=== PATIENT | female | born 1985 | race Two or more races ===

== ENCOUNTER 2023-12-30 13:18 | Outpatient (CLI) | payer OTHER | END 2023-12-30 13:19 | disposition home or self-care (01) | LOC: PRENATAL 13:18 | PROVIDERS: ATTEND Obstetrics & Gynecology Maternal & Fetal Medicine | DX: O35.9XX0 Maternal care for (suspected) fetal abnormality and damage, unspecified, not applicable or unspecified (principal); O35.3XX0 Maternal care for (suspected) damage to fetus from viral disease in mother, not applicable or unspecified; O44.02 Complete placenta previa NOS or without hemorrhage, second trimester; O09.512 Supervision of elderly primigravida, second trimester; O34.219 Maternal care for unspecified type scar from previous cesarean delivery; O36.0920 Maternal care for other rhesus isoimmunization, second trimester, not applicable or unspecified; Z3A.20 20 weeks gestation of pregnancy ==

== ENCOUNTER 2024-03-23 11:25 | Outpatient (CLI) | payer OTHER | END 2024-03-23 11:26 | disposition home or self-care (01) | LOC: PRENATAL 11:25 | PROVIDERS: ATTEND Obstetrics & Gynecology Maternal & Fetal Medicine | DX: O26.849 Uterine size-date discrepancy, unspecified trimester (principal); O36.8199 Decreased fetal movements, unspecified trimester, other fetus; O09.519 Supervision of elderly primigravida, unspecified trimester; O34.219 Maternal care for unspecified type scar from previous cesarean delivery; O36.1999 Maternal care for other isoimmunization, unspecified trimester, other fetus; Z3A.32 32 weeks gestation of pregnancy ==

== ENCOUNTER 2024-04-29 09:15 | Inpatient (IN) | payer OTHER ==
[~2024-04-29] VITALS: Ht 152.4 cm; Wt 90.7 kg
[2024-04-29 12:14] LABS: HEMATOCRIT 35.3 % (36.0-45.00); HEMOGLOBIN 11.8 g/dL (12.0-15.00); MEAN CELL VOLUME 88.4 fL (80.00-100.00); MEAN CORPUSCULAR HEMOGLOBIN 29.7 pg (27.00-32.0); MEAN CORPUSCULAR HGB CONC 33.6 g/dl (32.0-36.0); PLATELET COUNT 228 K/uL (150-450); RED BLOOD COUNT 3.99 M/uL (4.00-6.00); RED CELL DISTRIBUTION WIDTH 18.7 % (11.5-14.5)
[2024-04-29] MEDS ORDERED: PRENATE ELITE1 EAC2 PO (12:23)
[2024-04-29 12:44] LABS: INR 0.94; PARTIAL THROMBOPLASTIN TIME 26.1 SECONDS (22.0-34.0); PROTHROMBIN TIME 10.3 SECONDS (9.0-11.5)
[2024-04-29 12:52] LABS: ALBUMIN 2.9 gm/dL (3.4-5.0); BILIRUBIN TOTAL 0.39 mg/dL (0.3-1.2); CREATININE SERUM 0.59 mg/dL (0.55-1.02); GFR 113.47; GLOBULINA 3.7 G/DL (2.4-3.5); POTASSIUM 3.97 mEq/L (3.5-5.1); TOTAL PROTEIN 6.6 gm/dL (6.4-8.2)
[2024-04-29 14:09] LABS: URINE APPEARANCE Clear; URINE BILIRRUBIN Negative (NEGATIVE); URINE BLOOD Negative; URINE COLOR Yellow; URINE GLUCOSE Negative (NEGATIVE); URINE KETONE Trace (NEGATIVE); URINE LEUKOCYTE Trace; URINE NITRATE Negative; URINE PROTEIN Negative (NEGATIVE); URINE UROBILINOGEN 0.2 E.U./dl
[2024-04-29 14:13] LABS: URINE BACTERIA 3044.1 uL (0.0-1933); URINE EPITHELIAL CELLS 38.3 uL (0.0-38.8); URINE RBC 6.4 uL (0.0-20.8)
[2024-05-04 11:58] VITALS: BP 105/70
[2024-05-04] MEDS ORDERED: OXYTOCIN 1,000 ML IV SCH (17:45)
[2024-05-04] MEDS ORDERED: ERYTHROMYCIN BASE OPHT 1GM EACH TUBE OP ONE (17:45)
[2024-05-04] MEDS ORDERED: MEPERIDINE HCL/PF 50 MG/ML VIAL IV PRN (17:45)
[2024-05-04] MEDS ORDERED: OXYTOCIN 20 UNITS/1000ML RL PIGGYBAG IV ONE (17:45)
[2024-05-04] MEDS ORDERED: MORPHINE SULFATE 4 MG/ML VIAL IV ONE (19:10)
[2024-05-04 20:20] VITALS: BP 119/72
[2024-05-04] MEDS ORDERED: PROMETHAZINE HCL 25 MG/ML AMPUL IV SCH (21:00)
[2024-05-05 01:10] VITALS: BP 112/72
[2024-05-05 07:35] LABS: HEMATOCRIT 25.1 % (36.0-45.00); MEAN CELL VOLUME 87.4 fL (80.00-100.00); MEAN CORPUSCULAR HGB CONC 35.3 g/dl (32.0-36.0); PLATELET COUNT 177 K/uL (150-450); RED BLOOD COUNT 2.87 M/uL (4.00-6.00); RED CELL DISTRIBUTION WIDTH 18.3 % (11.5-14.5)
[2024-05-05 07:53] LABS: HEMOGLOBIN 8.9 g/dL (12.0-15.00)
[2024-05-05 08:00] VITALS: BP 109/72
[2024-05-05] MEDS ORDERED: SIMETHICONE 125 MG CAPSULE PO SCH (09:00)
[2024-05-05] MEDS ORDERED: OxyCODONE HCL/APAP UD (PERCOCET) PO PRN (09:00)
[2024-05-05] MEDS ORDERED: PNV,CALCIUM 72/IRON/FOLIC ACID 1 TAB TABLET PO SCH (09:00)
[2024-05-05] MEDS ORDERED: DOCUSATE SODIUM 100MG CAP PO SCH (09:00)
[2024-05-05] MEDS ORDERED: IRON/V.C/V.B12/FOLIC A/VIT. E 1 CAPL CAPLET PO SCH (11:28)
[2024-05-05 17:49] VITALS: BP 107/72
[2024-05-05 21:03] VITALS: BP 113/74
[2024-05-06 01:27] VITALS: BP 117/68
[2024-05-06 08:00] VITALS: BP 124/76
[2024-05-06 16:23] VITALS: BP 131/77
[2024-05-06] MEDS ORDERED: Pramoxine HCl 15 GM FOAM RECTAL SCH (17:00)
[2024-05-06] MEDS ORDERED: HYDROCORTISONE 2.5% 30 GM TUBE RECTAL SCH (17:00)
[2024-05-07 03:03] VITALS: BP 110/63
[2024-05-07 09:17] VITALS: BP 107/70
[2024-05-07 16:00] VITALS: BP 107/71
== END 2024-05-07 19:29 | DRG 788 ==
LOC: OB/GYN 05-04 07:00 → O/R 05-04 12:17 → OB/GYN 05-04 12:17
PROVIDERS: ADMIT Obstetrics & Gynecology; ATTEND Obstetrics & Gynecology
PROC: 4A1HXCZ Monitoring of Products of Conception, Cardiac Rate, External Approach (ICD-10-PCS; 2024-05-04)
PROC: 10D00Z1 Extraction of Products of Conception, Low, Open Approach (ICD-10-PCS; principal; 2024-05-04 07:00)
DX: O34.29 Maternal care due to uterine scar from other previous surgery (principal); Z3A.38 38 weeks gestation of pregnancy; Z37.0 Single live birth; Z20.822 Contact with and (suspected) exposure to COVID-19